=== PATIENT | female | born 1970 | race African-American/Black ===

== ENCOUNTER 2017-05-02 14:13 | Emergency (ER) | payer OTHER ==
[2017-05-02 14:27] VITALS: BP 136/81; BMI 28.2
--- NOTE | 2017-05-02 14:44 | DR.SEIZA ---
HPI - Time Seen Time seen: 14:35 - Primary Care Physician Primary Care Physician: HENRRY ANN - Complaints Chief Complaint Doctors Comments: Patient has been having seizures for sixteen years, she does not have a neurologist at this time. The seizures last 10-20 seconds with jerking of upper and lower extremities. She is post-ictal for 15- 20 seconds. Chief Complaint:: EMS CALLED OUT TO [facility] OFFICE WITH C/O PT HAVING A SEIZURE .. OFFICE WITNESSED TIMES 2... AND THE EMS WITNESSED ONLY ONE SEIZURE PT IS ALERT AND NON- ORIENTED ,, - Source History Provided: EMS - Mode of Arrival Mode of Arrival: Stretcher - Timing Onset of Chief Complaint: 05/02/17 PMH - PMH Past Medical History: Yes Past Medical History: Migraines, Hypertension, Seizures Past Surgical History: Yes Surgical History: Cholecystectomy - Family History History of Family Medical Conditions: Yes Family Medical History: Hypertension - Social History Does patient currently use any type of tobacco product: No Have you used tobacco products in the last 12 months: No Type of Tobacco Use: None Does any household member use tobacco: No Alcohol Use: None Do you use any recreational Drugs:: No Lives With: Family - infectious screening In the last 2 months have you had wt loss of >10#?: NO Have you had fever, night sweats or hemotysis?: No Have you traveled outside the country in the last 6 months?: No Isolation: Standard ROS - Review of Systems Eyes: No Symptoms Reported ENTM: No Symptoms Reported Respiratoy: No Symptoms Reported Cardiovascular: No Symptoms Reported Gastrointestinal/Abdominal: No Symptoms Reported Genitourinary: No Symptoms Reported Neurological: Seizure Musculoskeletal: No Symptoms Reported Integumentary: No Symptoms Reported Hematologic/Lymphatic: No Symptoms Reported Endocrine: No Symptoms Reported Psychiatric: No Symptoms Reported All Other Systems: Reviewed and Negative PE - Vital Signs Vitals: Temperature 97.3 F Pulse Rate 97 Respiratory Rate 22 Blood Pressure [Right Arm] 144/99 Blood Pressure 136/81 O2 Sat by Pulse Oximetry 99 - General Limitations: No Limitations General Appearance: Alert, In No Apparent Distress - Head Head Exam: Normal Inspection, Atraumatic Head Exam Physical: negative: Laceration, Abrasion, Contusion, Hematoma, Raccoon Eyes, Rubio's Sign, Tenderness of Temporal Artery, CSF Rhinorrhea, CSF Otorrhea, Other - Eyes Eye exam: Normal Appearance, PERRL, EOMI Eyelids: Normal Inspection: Bilateral - ENT ENT Exam: Normal Exam, Normal Oropharynx Mouth Exam: Normal Inspection, Drooling. negative: Trismus, Lip Swelling, Tongue Elevation - Neck Neck Exam: Normal Inspection, Full ROM - Chest Chest Inspection: Normal Inspection, Symmetric Chest Wall Rise - Respiratory Respiratory Exam: Normal Lung Sounds Bilat, Accessory Muscle Use Respiratory Exam: Bilateral Clear to Auscultation - Cardiovascular Cardiovascular Exam: Regular Rate, Normal Rhythm - Abdominal Exam Abdominal Exam: Normal Inspection, Normal Bowel Sounds Abdominal Tenderness: negative: RUQ, RLQ, LUQ, LLQ, Epigastrium, Suprapubic, Diffuse, Mild, Moderate, Severe, Other - Extremities Extremities Exam: Normal Inspection, Full ROM - Back Back Exam: Normal Inspection, Full ROM - Neurologic Neurological Exam: Alert, Oriented X3, CN II-XII Intact Patient Oriented To: Person Speech: Fluid Speech Cranial Nerve Exam: EOM Function (II, III, IV, ): Normal Cerebellar Function: Finger to Nose: Normal DTR: achilles tendon (L): 2+ - Psychiatric Psychiatric Exam: Normal Affect, Depressed - Skin Skin Exam: Warm, Dry, Intact Course - Treatment Treatment: Discussed with Dr Richter, he agreed to see in his [place] office tomorrow. ROR - Labs Reviewed Result Diagrams: 05/02/17 15:14 05/02/17 15:14 Laboratory: WBC 5.0 X10^3/uL (3.6-10.0) 05/02/17 15:14 RBC 4.44 X10^6/uL (3.5-5.4) 05/02/17 15:14 Hgb 11.7 g/dL (12.0-16.0) L 05/02/17 15:14 Hct 35.1 % (36.0-47.0) L 05/02/17 15:14 MCV 79.1 fL (80.0-100.0) L 05/02/17 15:14 MCH 26.3 pg (27.0-34.0) L 05/02/17 15:14 MCHC 33.3 g/dL (33.0-35.0) 05/02/17 15:14 RDW 14.5 % (11.6-16.5) 05/02/17 15:14 Plt Count 254 X10^3/uL (150.0-450.0) 05/02/17 15:14 MPV 9.0 fL (7.4-11.0) 05/02/17 15:14 Neut % 55.8 % (42.0-75.0) 05/02/17 15:14 Lymph % 33.7 % (21.0-51.0) 05/02/17 15:14 Sabine % 9.1 % (0.0-13.0) 05/02/17 15:14 Eos % 1.2 % (0.9-2.9) 05/02/17 15:14 Baso % 0.2 % (0.2-1.0) 05/02/17 15:14 Neut # 2.8 x10^3/uL (2.2-4.8) 05/02/17 15:14 Lymph # 1.7 X10^3/uL (1.3-2.9) 05/02/17 15:14 Sabine # 0.5 x10^3/uL (0.3-0.8) 05/02/17 15:14 Eos # 0.1 x10^3/uL (0.0-0.2) 05/02/17 15:14 Baso # 0.0 X10^3/uL (0.0-0.1) 05/02/17 15:14 Absolute Nucleated RBC 0.0 /100WBC 05/02/17 15:14 Sodium 141 mmol/L (136-145) 05/02/17 15:14 Corrected Sodium TNP 05/02/17 15:14 Potassium 3.7 mmol/L (3.5-5.1) 05/02/17 15:14 Chloride 105 mmol/L (98-107) 05/02/17 15:14 Carbon Dioxide 23.3 mmol/L (21-32) 05/02/17 15:14 BUN 10 mg/dL (7-18) 05/02/17 15:14 Creatinine 0.79 mg/dL (0.55-1.02) 05/02/17 15:14 Est GFR (MDRD) Af Amer > 60 (>60) 05/02/17 15:14 Est GFR (MDRD) Non-Af > 60 (>60) 05/02/17 15:14 Glucose 87 mg/dL (65-99) 05/02/17 15:14 Calcium 9.4 mg/dL (8.5-10.1) 05/02/17 15:14 Corrected Calcium TNP 05/02/17 15:14 Magnesium 1.9 mg/dL (1.7-2.9) 05/02/17 15:14 Total Bilirubin 0.10 mg/dL (0.2-1.0) L 05/02/17 15:14 AST 15 Units/L (15-37) 05/02/17 15:14 ALT 20 Units/L (12-78) 05/02/17 15:14 Alkaline Phosphatase 124 Units/L (46-116) H 05/02/17 15:14 Total Protein 8.1 g/dL (6.4-8.2) 05/02/17 15:14 Albumin 3.7 g/dL (3.4-5.0) 05/02/17 15:14 Globulin 4.4 g/dL (2.5-4.5) 05/02/17 15:14 Albumin/Globulin Ratio 0.8 Ratio (1.1-2.1) L 05/02/17 15:14 - Diagnosis Discharge Problem: Seizure disorder - Discharge Plan Condition: Stable - Follow ups/Referrals Follow ups/Referrals: Eddie Stone [Primary Care Provider] - 3 days - Instructions
[2017-05-02 15:22] LABS: BASOPHILS % (AUTO) 0.2 % (0.2-1.0); EOSINOPHILS # (AUTO) 0.1 x10^3/uL (0.0-0.2); EOSINOPHILS % (AUTO) 1.2 % (0.9-2.9); HEMATOCRIT 35.1 % (36.0-47.0); HEMOGLOBIN 11.7 g/dL (12.0-16.0); LYMPHOCYTES # (AUTO) 1.7 X10^3/uL (1.3-2.9); LYMPHOCYTES % (AUTO) 33.7 % (21.0-51.0); MEAN CORPUSCULAR HEMOGLOBIN 26.3 pg (27.0-34.0); MEAN CORPUSCULAR HGB CONC 33.3 g/dL (33.0-35.0); MEAN CORPUSCULAR VOLUME 79.1 fL (80.0-100.0); MONOCYTES # (AUTO) 0.5 x10^3/uL (0.3-0.8); MONOCYTES % (AUTO) 9.1 % (0.0-13.0); NEUTROPHILS # (AUTO) 2.8 x10^3/uL (2.2-4.8); NEUTROPHILS % (AUTO) 55.8 % (42.0-75.0); PLATELET COUNT 254 X10^3/uL (150.0-450.0); RED BLOOD COUNT 4.44 X10^6/uL (3.5-5.4); RED CELL DISTRIBUTION WIDTH 14.5 % (11.6-16.5)
[2017-05-02] MEDS ORDERED: ATIVAN INJ 2 MG VIAL ONE (15:29)
[2017-05-02 15:33] LABS: ALANINE AMINOTRANSFERASE 20 Units/L (12-78); ALBUMIN 3.7 g/dL (3.4-5.0); ALKALINE PHOSPHATASE 124 Units/L (46-116); ASPARTATE AMINO TRANSFERASE 15 Units/L (15-37); BLOOD UREA NITROGEN 10 mg/dL (7-18); CALCIUM 9.4 mg/dL (8.5-10.1); CARBON DIOXIDE 23.3 mmol/L (21-32); CHLORIDE 105 mmol/L (98-107); CREATININE 0.79 mg/dL (0.55-1.02); SODIUM 141 mmol/L (136-145); TOTAL PROTEIN 8.1 g/dL (6.4-8.2); eGFR BLACK RACES > 60 (>60); eGFR NON BLACK RACES > 60 (>60)
[2017-05-02] MEDS ORDERED: ATIVAN INJ 2 MG VIAL IVP ONE (15:40)
== END 2017-05-02 17:37 | disposition home or self-care (01) ==
LOC: ER 14:19
DX: G40.909 Epilepsy, unspecified, not intractable, without status epilepticus (principal)
CPT/HCPCS: 36415; 80053; 80177; 83735; 85025; 96365; 96374; 99283; J2060